=== PATIENT | male | born 1975 | race Caucasian/White ===

== ENCOUNTER 2018-12-04 20:44 | Emergency (ER) | payer OTHER ==
[~2018-12-04] VITALS: Ht 172.7 cm; Wt 56.7 kg
[~2018-12-04 20:44] MED LIST: AMOX500 PO; CEPH500 PO; CYCL10 PO; HYDACE5 PO; HYDACE5325 PO; IBUP600 PO; KETO10 PO; NAPR500 PO; Naprosyn500 MG PO; PENVK500 PO; RXHYDACE PO; SULTRIDS PO; Ultram50 MG PO; [UNRECOGNIZED DRUG - CODE] PO
== END 2018-12-04 21:49 | disposition home or self-care (01) ==
LOC: ER 20:44
DX: S61.201A Unspecified open wound of left index finger without damage to nail, initial encounter (principal); F17.200 Nicotine dependence, unspecified, uncomplicated; Z23 Encounter for immunization; W26.0XXA Contact with knife, initial encounter; Y92.89 Other specified places as the place of occurrence of the external cause; Y99.0 Civilian activity done for income or pay
CPT/HCPCS: 73140; 90471; 90714; 99283-25

== ENCOUNTER 2019-06-17 22:24 | Emergency (ER) | payer SELFPAY ==
[~2019-06-17] VITALS: Ht 172.7 cm; Wt 59.0 kg
[2019-06-18] MEDS ORDERED: CEPH500 PO (00:14)
[2019-06-18] MEDS ORDERED: Bactrim Ds Tab1 EACH PO (00:14)
== END 2019-06-18 00:24 | disposition home or self-care (01) ==
LOC: ER 22:24
DX: L02.412 Cutaneous abscess of left axilla (principal); L03.112 Cellulitis of left axilla; F17.200 Nicotine dependence, unspecified, uncomplicated
CPT/HCPCS: 10061; 99283-25; A9270-GY

== ENCOUNTER 2025-11-08 20:12 | Emergency (ER) | payer SELFPAY ==
[~2025-11-08] VITALS: Ht 170.2 cm; Wt 68.0 kg
[~2025-11-08 20:12] MED LIST changes: +Bactrim Ds Tab1 EACH PO; +METO10 PO
[2025-11-08 20:33] VITALS: BP 157/88
[2025-11-08] MEDS ORDERED: Lidocaine/Tetracaine/Epinephr 3 ML GEL SYRINGE TOP ONE (20:40)
[2025-11-08] MEDS ORDERED: Ketorolac Tromethamine 15mg Vial IM ONE (22:55)
== END 2025-11-08 22:58 | disposition home or self-care (01) ==
LOC: ER 20:12
DX: S01.01XA Laceration without foreign body of scalp, initial encounter (principal); F17.210 Nicotine dependence, cigarettes, uncomplicated; Z79.2 Long term (current) use of antibiotics; Z79.899 Other long term (current) drug therapy; W22.8XXA Striking against or struck by other objects, initial encounter
CPT/HCPCS: 12002; 90471; 90715; 96372; 99282-25; J1885